=== PATIENT | female | born 1995 | race Caucasian/White ===

== ENCOUNTER 2021-06-08 02:55 | Inpatient (IN) | payer MEDICAID, OTHER ==
--- NOTE | 2021-06-08 03:21 | ED ---
Psych HPI - General Chief Complaint: Psychiatric Symptoms Stated Complaint: Mental health Time Seen by Provider: 06/08/21 02:58 Source: patient, family, RN notes reviewed, old records reviewed Mode of arrival: ambulatory - History of Present Illness Initial Comments: This is a 26-year-old female to the emergency department today for evaluation today. Patient Dese for evaluation of significant suicidal thoughts. Severe depression. No recent drugs or alcohol abuse. Patient states she needs to psychiatry due to the severity of her current symptoms. MD Complaint: suicidal ideation, feels depressed -: days(s) Associated Psychiatric Symptoms: depression, suicidal ideation, racing thoughts History of same: Yes Quality: constant Improves With: none Worsens With: none Context: not taking psychiatric medications, significant life stressor Associated Symptoms: denies other symptoms Treatments Prior to Arrival: placed on mental health hold If Self Harm: admits thoughts of self harm - Related Data Allergies Allergy/AdvReac Type Severity Reaction Status Date / Time No Known Allergies Allergy Verified 06/08/21 03:05 Review of Systems ROS Statement: Those systems with pertinent positive or pertinent negative responses have been documented in the HPI. ROS Other: All systems not noted in ROS Statement are negative. Past Medical History Past Medical History: No Reported History Additional Past Medical History / Comment(s): depression History of Any Multi-Drug Resistant Organisms: MRSA Date of last positivie culture/infection: left thigh Past Surgical History: No Surgical Hx Reported Past Psychological History: Anxiety, Depression Smoking Status: Current every day smoker Past Alcohol Use History: Occasional Past Drug Use History: None Reported General Exam Limitations: no limitations General appearance: alert, in no apparent distress Head exam: Present: atraumatic, normocephalic, normal inspection Eye exam: Present: normal appearance, PERRL, EOMI. Absent: scleral icterus, conjunctival injection, periorbital swelling ENT exam: Present: normal exam, mucous membranes moist Neck exam: Present: normal inspection. Absent: tenderness, meningismus, lymphadenopathy Respiratory exam: Present: normal lung sounds bilaterally. Absent: respiratory distress, wheezes, rales, rhonchi, stridor Cardiovascular Exam: Present: regular rate, normal rhythm, normal heart sounds. Absent: systolic murmur, diastolic murmur, rubs, gallop, clicks GI/Abdominal exam: Present: soft, normal bowel sounds. Absent: distended, tenderness, guarding, rebound, rigid Extremities exam: Present: normal inspection, full ROM, normal capillary refill. Absent: tenderness, pedal edema, joint swelling, calf tenderness Back exam: Present: normal inspection Neurological exam: Present: alert, oriented X3, CN II-XII intact Psychiatric exam: Present: normal affect, normal mood Skin exam: Present: warm, dry, intact, normal color. Absent: rash Course Vital Signs 06/08/21 02:59 Temperature 98.4 F Pulse Rate 102 H Respiratory 22 Rate Blood Pressure 128/78 O2 Sat by Pulse 96 Oximetry - Reevaluation(s) Reevaluation #1: 06/08/21 05:36 Record is reviewed 06/08/21 05:36 Clear for psychiatric evaluation Reevaluation #2: 06/08/21 06:08 Patient did attempt suicide by jumping out of a rolling vehicle Medical Decision Making - Medical Decision Making 26 female will be admitted for suicide attempt, major depression suicidal ideation - Lab Data Lab Results 06/08/21 Range/Units 03:23 Urine Opiates Screen Not Detected (NotDetected) Ur Oxycodone Screen Not Detected (NotDetected) Urine Methadone Screen Not Detected (NotDetected) Ur Propoxyphene Screen Not Detected (NotDetected) Ur Barbiturates Screen Not Detected (NotDetected) U Tricyclic Antidepress Not Detected (NotDetected) Ur Phencyclidine Scrn Not Detected (NotDetected) Ur Amphetamines Screen Not Detected (NotDetected) U Methamphetamines Scrn Not Detected (NotDetected) U Benzodiazepines Scrn Not Detected (NotDetected) Urine Cocaine Screen Not Detected (NotDetected) U Marijuana (THC) Screen Detected H (NotDetected) Disposition Clinical Impression: Depression, Suicidal ideation, Attempted suicide Disposition: TRANSFER TO PSYCH HOSP/UNIT Condition: Fair Is patient prescribed a controlled substance at d/c from ED?: No Referrals: None,Stated [Primary Care Provider] - 1-2 days
[2021-06-08 04:21] LABS: Amphetamine Screen,Urine Not Detected (NotDetected); Barbiturate Screen,Urine Not Detected (NotDetected); Benzodiazepines Screen,Urine Not Detected (NotDetected); Cocaine Screen,Urine Not Detected (NotDetected); Methadone Screen, Urine Not Detected (NotDetected); Opiate Screen,Urine Not Detected (NotDetected); Oxycodone Screen, Urine Not Detected (NotDetected); Phencyclidine Screen,Urine Not Detected (NotDetected); Tricyclic Antidepressant,Urine Not Detected (NotDetected); Urn Cannabinoid Scrn Detected (NotDetected)
[2021-06-08] MEDS ORDERED: MAGNESIUM HYDROXIDE 2,400 MG/10 ML CUP PO PRN (07:56)
[2021-06-08] MEDS ORDERED: MAG HYDROX/AL HYDROX/SIMETH 30 ML CUP PO PRN (07:56)
[2021-06-08] MEDS ORDERED: ACETAMINOPHEN TAB 325 MG TAB PO PRN (07:56)
[2021-06-08] MEDS ORDERED: HALOPERIDOL LACTATE 5 MG/ML 1 ML VIAL IM PRN (07:58)
[2021-06-08] MEDS ORDERED: LORazepam 1 MG TAB PO PRN (08:00)
[2021-06-08] MEDS ORDERED: LORazepam 2 MG/ML INJ IM PRN (08:00)
[2021-06-08] MEDS: NICOTINE 14MG/24HR PATCH TRANSDERM SCH (08:40)
[2021-06-08 10:42] LABS: Appearance,Urine Clear (Clear); Bilirubin,Urine Negative (Negative); Blood,Urine Negative (Negative); Color,Urine Yellow; Glucose,Urine (UA) Negative (Negative); Ketones,Urine Negative (Negative); Leukocyte Esterase,Urine Negative (Negative); Nitrite,Urine Negative (Negative); Protein,Urine Negative (Negative)
--- NOTE | 2021-06-08 11:17 | P.HPIM ---
History of Present Illness H&P Date: 06/08/21 Chief Complaint: Suicide attempt This is a 26-year-old female to the emergency department today for evaluation today. Patient admittedfor evaluation of significant suicidal thoughts and attempt. Patient tried to stab herself with a knife. Severe depression. No recent drugs or alcohol abuse. Patient states she needs to psychiatry due to the severity of her current symptoms. Review of Systems 14 point review of systems was assessed patient was only positive for those discussed in HPI Past Medical History Past Medical History: No Reported History Additional Past Medical History / Comment(s): depression History of Any Multi-Drug Resistant Organisms: MRSA Date of last positivie culture/infection: left thigh MDRO Source:: sore on thigh Past Surgical History: No Surgical Hx Reported Past Psychological History: Anxiety, Depression Smoking Status: Current every day smoker Past Alcohol Use History: Occasional Past Drug Use History: None Reported Medications and Allergies Home Medications Medication Instructions Recorded Confirmed Type Benztropine Mesylate [Cogentin] 2 mg PO BID 06/08/21 06/08/21 History Desvenlafaxine Succinate [Pristiq] 50 mg PO DAILY 06/08/21 06/08/21 History Lurasidone HCl [Latuda] 120 mg PO HS 06/08/21 06/08/21 History fluPHENAZine HCl 10 mg PO HS 06/08/21 06/08/21 History fluPHENAZine [Prolixin 5MG] 5 mg PO DAILY PRN 06/08/21 06/08/21 History traZODone HCL 150 mg PO HS 06/08/21 06/08/21 History Allergies Allergy/AdvReac Type Severity Reaction Status Date / Time No Known Allergies Allergy Verified 06/08/21 09:09 Physical Exam Osteopathic Statement: *. No significant issues noted on an osteopathic structural exam other than those noted in the History and Physical/Consult. Vitals: Vital Signs Temp Pulse Pulse Resp BP BP Pulse Ox 06/08/21 08:53 99.3 F 97 15 141/89 95 06/08/21 02:59 98.4 F 102 H 22 128/78 96 Intake and Output 06/07/21 06/08/21 06/08/21 22:59 06:59 14:59 Other: Weight 154.539 kg 154.539 kg General: [non toxic], [no distress], [appears at stated age] Derm: [warm], [dry] Head: [atraumatic], [normocephalic], [symmetric] Eyes: [EOMI], [no lid lag], [anicteric sclera] Mouth: [no lip lesion], [mucus membranes moist] Cardiovascular: [S1S2 reg], [no murmur], [positive posterior tibial pulse bilateral], Lungs: [CTA bilateral], [no rhonchi, no rales] , [no accessory muscle use] Abdominal: [soft], [ nontender to palpation], [no guarding], [no appreciable organomegaly] Ext: [no gross muscle atrophy], [no edema], [no contractures] Neuro: [ CN II-XI grossly intact], [no focal neuro deficits] Psych: [Alert], [oriented], [appropriate affect] Results Labs: Abnormal Lab Results - Last 24 Hours (Table) 06/08/21 Range/Units 03:23 U Marijuana (THC) Screen Detected H (NotDetected) Thrombosis Risk Factor Assmnt - Choose All That Apply Any of the Below Risk Factors Present?: No Assessment and Plan Plan: Suicidal ideation and attempt with major depressive disorder Continue psychiatric care as recommended Follow-up as needed Time with Patient: Greater than 30
--- NOTE | 2021-06-08 11:33 | P.HP ---
Psychiatric H&P - . H&P Date: 06/08/21 History & Physical: Allergies Allergy/AdvReac Type Severity Reaction Status Date / Time No Known Allergies Allergy Verified 06/08/21 09:09 Vital Signs Temp 99.3 F 06/08/21 08:53 Pulse 97 06/08/21 08:53 Resp 15 06/08/21 08:53 BP 141/89 06/08/21 08:53 Pulse Ox 95 06/08/21 08:53 Intake & Output 06/07/21 06/08/21 06/08/21 18:59 06:59 18:59 Weight 154.539 kg 154.539 kg Laboratory Last Values Urine Color Yellow 06/08/21 03:23 Urine Appearance Clear (Clear) 06/08/21 03:23 Urine pH 6.0 (5.0-8.0) 06/08/21 03:23 Ur Specific [place] 1.020 (1.001-1.035) 06/08/21 03:23 Urine Protein Negative (Negative) 06/08/21 03:23 Urine Glucose (UA) Negative (Negative) 06/08/21 03:23 Urine Ketones Negative (Negative) 06/08/21 03:23 Urine Blood Negative (Negative) 06/08/21 03:23 Urine Nitrite Negative (Negative) 06/08/21 03:23 Urine Bilirubin Negative (Negative) 06/08/21 03:23 Urine Urobilinogen 2.0 mg/dL (<2.0) 06/08/21 03:23 Ur Leukocyte Esterase Negative (Negative) 06/08/21 03:23 Urine HCG, Qual Not Detected (Not Detectd) 06/08/21 03:23 Urine Opiates Screen Not Detected (NotDetected) 06/08/21 03:23 Ur Oxycodone Screen Not Detected (NotDetected) 06/08/21 03:23 Urine Methadone Screen Not Detected (NotDetected) 06/08/21 03:23 Ur Propoxyphene Screen Not Detected (NotDetected) 06/08/21 03:23 Ur Barbiturates Screen Not Detected (NotDetected) 06/08/21 03:23 U Tricyclic Antidepress Not Detected (NotDetected) 06/08/21 03:23 Ur Phencyclidine Scrn Not Detected (NotDetected) 06/08/21 03:23 Ur Amphetamines Screen Not Detected (NotDetected) 06/08/21 03:23 U Methamphetamines Scrn Not Detected (NotDetected) 06/08/21 03:23 U Benzodiazepines Scrn Not Detected (NotDetected) 06/08/21 03:23 Urine Cocaine Screen Not Detected (NotDetected) 06/08/21 03:23 U Marijuana (THC) Screen Detected (NotDetected) H 06/08/21 03:23 Coronavirus (PCR) Not Detected (Not Detectd) 06/08/21 06:14 06/08/21 11:25 Initial evaluation: History of present illness: Jorge is a 26-year-old female with long history of mental illness and states that she carries a diagnoses of bipolar disorder Patient is of a vague and a poor historian and at times seemed to be very preoccupied Patient states that there was something in her mind that bothered her and resulted in her hospitalization She was unable to elaborate Reviewing the chart reveals that the patient had suicidal thoughts where she wanted to stab herself with a knife Patient did not give any specific detailed was states that she has been feeling depressed She admits that she has a history of being a cutter as well as other suicide attempts in the past She stated that she currently lives with her parents Patient was unable to give any specific stressors for her recent hospitalization She denies any alcohol or substance use but states that she has sometimes used alcohol and cannabis She was very vague about her current medications but states that she has taken Pristiq trazodone and let to do Patient is unable to recall the doses Reviewing the chart reveals that the patient is on Pristiq 50 mg daily Trazodone 150 mg at nighttime Prolixin 10 mg at bedtime Cogentin 2 mg twice a day latuda -120 mg every day Past history personal and social history: Patient reports several previous psychiatric hospitalizations Patient was unable to give any specific details and does not remember when she was last hospitalized As mentioned earlier patient admits to occasionally using cannabis and alcohol She states that she has finished high school and currently is living with her parents She states that 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 She denies being in any relationships at this time Patient is also dealing with chronic obesity Patient does not know there is family history of any mental illness Mental status examination reveals a young very obese female who currently appears in no acute physical distress Patient had her mattress on the floor and states that she is comfortable more on the floor Patient also appears to be very preoccupied and responses were rather delayed with long pauses Affect was flat Thought processes were somewhat vague superficial with delays Patient denies any auditory or visual hallucinations Patient's formal and operational judgment are impaired Insight into her problem is poor Problem solving ability is impaired Cognitively patient also shows some delays in responses and difficulty with concentration and attention span Diagnostic impression: Bipolar disorder mixed type Rule out personality disorder with borderline tendencies Plan: Patient is an appropriate candidate for inpatient psychiatric hospitalization 2 will continue her current medications although I had difficulty putting in the orders for Pristiq and Latuda which are not listed in the order forms We'll discuss to the nursing staff regarding adding those orders Patient's compliance with the medications is questionable and at this time we will restart the whole medications before making any changes or adjustments Patient also participated on the boateng activities individual milieu and group therapies Approximate length of stay would be 5-7 days Bentley Hauser M.D. 06/08/2021
[2021-06-08] MEDS: BENZTROPINE MESYLATE 1 MG TAB PO SCH ×2 (11:35→23:25)
[2021-06-08] MEDS: DESVENLAFAXINE SUCCINATE 50 MG TAB.ER.24H PO SCH (11:35)
[2021-06-08] MEDS ORDERED: LURASIDONE 40 MG TAB PO SCH (21:00)
[2021-06-08] MEDS: traZODone HCL 50 MG TAB PO SCH (23:26)
[2021-06-09] MEDS: NICOTINE 14MG/24HR PATCH TRANSDERM SCH ×2 (08:40→10:54)
[2021-06-09] MEDS: BENZTROPINE MESYLATE 1 MG TAB PO SCH ×3 (08:40→21:11)
[2021-06-09] MEDS: DESVENLAFAXINE SUCCINATE 50 MG TAB.ER.24H PO SCH (08:40)
[2021-06-09 11:39] LABS: Basophils # (A) 0.1 k/uL (0-0.2); Basophils % (A) 1 %; Eosinophils # (A) 0.3 k/uL (0-0.7); Eosinophils % (A) 3 %; HCT 49.2 % (34.0-46.0); HGB 16.1 gm/dL (11.4-16.0); Lymphocytes # (A) 2.1 k/uL (1.0-4.8); Lymphocytes % (A) 22 %; MCH 29.5 pg (25.0-35.0); MCHC 32.7 g/dL (31.0-37.0); MCV 90.2 fL (80.0-100.0); Mean Platelet Volume 8.8; Monocytes # (A) 0.5 k/uL (0-1.0); Monocytes % (A) 5 %; Neutrophils # (A) 6.5 k/uL (1.3-7.7); Neutrophils % (A) 68 %; Platelet Count 250 k/uL (150-450); RBC 5.45 m/uL (3.80-5.40); WBC 9.6 k/uL (3.8-10.6)
[2021-06-09 11:58] LABS: ALT 50 U/L (4-34); AST 34 U/L (14-36); African American GFR (CKD) >90 (>60 ml/min/1.73 sqM); Albumin 4.4 g/dL (3.5-5.0); Alkaline Phosphatase 80 U/L (38-126); Anion Gap 9 mmol/L; Blood Urea Nitrogen 9 mg/dL (7-17); Calcium 9.5 mg/dL (8.4-10.2); Carbon Dioxide 23 mmol/L (22-30); Chloride 104 mmol/L (98-107); Glucose 105 mg/dL (74-99); Non-African American GFR(CKD) >90 (>60 ml/min/1.73 sqM); Potassium 4.5 mmol/L (3.5-5.1); Sodium 136 mmol/L (137-145); Total Bilirubin 1.3 mg/dL (0.2-1.3); Total Protein 7.3 g/dL (6.3-8.2)
--- NOTE | 2021-06-09 12:33 | P.PN ---
Progress Note - Text Progress Note Date: 06/09/21 Interval History: Patient was seen [wandering the hallways] and was directable and agreeable to speak with physician underwriter in the office. [ The patient was fairly concrete and appeared to have a depressed affect during conversation. She spoke in a monotone voice. She was very vague and guarded about why she came into the hospital. She was denying any recent stressors except for being focused on "feeling like everyone's dying around me". She endorsed delusions mildly related to this however was not endorsing any paranoia. She claims that she trusts the staff in the unit. She had a poverty of content and appeared to have thought blocking. She had poor eye contact during conversation. She was alert and oriented 3. She had superficial insight into her mental health and need for treatment however was agreeable to take medications]. She is denying any mood swings at this time however does state that she is feeling depressed and mildly anxious. She claims that she has fair sleep. At this time patient denies any suicidal or homical ideations, intent or plan. Patient denies any auditory, visual hallucinations and denies any paranoia or delusions. Patient denies any side effects from the medications and has been compliant with meds. Mental Status Exam: General Appearance: [Patient appears to be overweight, stated age is alert, concrete, guarded/evasive] Behavior: [Patient is calmly seated without any agitated behavior.] Poor eye contact. Speech: Patient's speech is fluent and nonpressured. Monotone and concrete. Mood/Affect: Mood is "depressed", affect is congruent and constricted. Suicidality/Homicidality: Patient denies having any suicidal or homicidal ideation intent or plan. Perceptions: Patient denies any visual hallucinations [and denies any auditory hallucinations] Though content/process: [place], poverty of content. Guarded. Not endorsing any paranoia. Memory and concentration: AOX3, grossly intact for the purposes of this session Judgment and insight: Superficial Assessment schizoaffective disorder, unspecified cannabis use disorder, mild nicotine dependence Plan: -Patient continues to meet criteria for inpatient psychiatric admission for symptom stabilization and safety. Patient has signed [adult voluntary form and] [medication consent] and was placed in patient's chart. -Medications: Discontinued latuda as there is no need currently for two antipsychotics. continue with prolixin 5 mg daily + 10 mg qhs for psychosis/mood stabilization. trazodone 150 mg qhs for mood/insomnia, cogentin decreased to 1 mg bid for eps rxn and pristiq 50 mg for mood/anxiety. -When necessary Ativan and Haldol for agitation/aggression. -NRT - [nicotine patch] -SW on board for discharge planning. Encouraged the patient to participate in milieu.
[2021-06-09] MEDS: traZODone HCL 50 MG TAB PO SCH (21:11)
[2021-06-09 21:34] LABS: Chol/HDL Ratio 3.58 Ratio; LDL Cholesterol,Calculated 59.1 mg/dL (0.0-131.0)
[2021-06-10] MEDS: DESVENLAFAXINE SUCCINATE 50 MG TAB.ER.24H PO SCH (09:20)
[2021-06-10] MEDS: NICOTINE 14MG/24HR PATCH TRANSDERM SCH (09:21)
[2021-06-10] MEDS: BENZTROPINE MESYLATE 1 MG TAB PO SCH ×2 (09:21→21:08)
--- NOTE | 2021-06-10 11:30 | P.PN ---
Progress Note - Text Progress Note Date: 06/10/21 Interval History: Patient was seen lying in her bed today and was directable and agreeable to sp eak with continuity writer in the office. The patient was fairly concrete once again and had a poverty of content. She had poor eye contact during conversation and spoke in a monotone voice. She denied any overnight complaints. She did claim that she is feeling paranoid "about bad things happening" however was very nonspecific and guarded when asked more questions about this. She does state that she trusts the staff and other patients on the unit. She was noted to be responding to internal stimuli at times during interview and looked away from continuity writer and began laughing. She was asked why she was laughing however claims that "it was just a gesture". She states that she will speak to her father today as he will come to visit. She had superficial insight into her mental health and need for treatment however was agreeable to take medications. She is denying any mood swings at this time however does state that her mood and anxiety been improving since yesterday. She claims that she has fair sleep. At this time patient denies any suicidal or homical ideations, intent or plan. Patient denies any auditory, visual hallucinations and denies any paranoia or delusions. Patient denies any side effects from the medications and has been compliant with meds. Mental Status Exam: General Appearance: Patient appears to be overweight, stated age is alert, concrete, guarded/evasive Behavior: Patient is calmly seated without any agitated behavior. Poor eye contact. Responding to internal stimuli at times. Speech: Patient's speech is fluent and nonpressured. Monotone and concrete. Mood/Affect: Mood is "a bit better", affect is congruent and constricted. Suicidality/Homicidality: Patient denies having any suicidal or homicidal ideation intent or plan. Perceptions: Patient denies any visual hallucinations and denies any auditory hallucinations Though content/process: [place], poverty of content. Guarded. paranoia Memory and concentration: AOX3, grossly intact for the purposes of this session Judgment and insight: Superficial Assessment schizoaffective disorder, unspecified cannabis use disorder, mild nicotine dependence Plan: -Patient continues to meet criteria for inpatient psychiatric admission for symptom stabilization and safety. Patient has signed adult voluntary form and medication consent and was placed in patient's chart. -Medications: continue with prolixin 5 mg daily + 10 mg qhs for psychosis/mood stabilization, consider increasing this as needed. trazodone 150 mg qhs for mood/insomnia, cogentin 1 mg bid for eps rxn and pristiq 50 mg for mood/anxiety. -When necessary Ativan and Haldol for agitation/aggression. -NRT - nicotine patch -SW on board for discharge planning. Encouraged the patient to participate in milieu. patient will be going to [facility] upon discharge and likely discharge wednesday.
[2021-06-10] MEDS: traZODone HCL 50 MG TAB PO SCH (21:08)
[2021-06-11] MEDS: BENZTROPINE MESYLATE 1 MG TAB PO SCH ×2 (09:16→20:15)
[2021-06-11] MEDS: NICOTINE 14MG/24HR PATCH TRANSDERM SCH (09:16)
[2021-06-11] MEDS: DESVENLAFAXINE SUCCINATE 50 MG TAB.ER.24H PO SCH (09:16)
[2021-06-11] MEDS ORDERED: DESVENLAFAXINE SUCCINATE 50 MG TAB.ER.24H PO ONE (12:00)
--- NOTE | 2021-06-11 14:33 | PN ---
PROGRESS NOTE DATE OF SERVICE: 06/11/2021. CHIEF COMPLAINT: The patient was depressed with suicidal thinking and thoughts of wanting to stab herself. INTERVAL HISTORY: The patient continues to be quite depressed. She had a quiet day yesterday. She comes out on the unit some. She tends to keep to herself. Staff have noted that she seems to respond at different times to internal stimuli. She did not attend groups yesterday. She slept fair last night. Today she has been up. She attended one group today briefly. She was asked one question in the group; her response was "I don't know." After that she just walked out of the group and did not return. When I talked to her today, she was quite vague in her thinking. She did not respond much to any of the questions, mostly just gave some vague one- or two-word responses that did not connect to the questions at hand. She did not identify any specific concerns. She seems to tolerate her medications. MENTAL STATUS: Patient sat with some restlessness. Eye contact was poor. She tended to look forward or down. She would respond to questions, though her responses were just vague and mostly not connected to the question at hand. She otherwise did not make any statements one way or another. Her affect was flat, her mood depressed. When she first came into the office and sat, she started crying, though then the tears seem to dissipate. She seemed moderately distressed. She shows response to internal stimuli. She did not make any direct comments in regard to thoughts of harm. She was oriented to circumstances and surroundings. ASSESSMENT: I will continue the current diagnosis and treatment plan. The patient continues to be significantly caught up in thought disorder symptoms as well as mood difficulties. Her Prolixin has just been increased yesterday 10 mg twice a day. I will increase her Pristiq to 100 mg a day. She will continue trazodone 150 mg at bedtime. I briefly reviewed medication issues with the patient though kept the discussion limited, as the patient was not able to engage in the conversation. We will focus on stabilization and discharge planning. MMODL / IJN: [id number] /
[2021-06-11] MEDS: traZODone HCL 50 MG TAB PO SCH (20:16)
[2021-06-12] MEDS: NICOTINE 14MG/24HR PATCH TRANSDERM SCH (09:16)
[2021-06-12] MEDS: DESVENLAFAXINE SUCCINATE 50 MG TAB.ER.24H PO SCH (09:17)
[2021-06-12] MEDS: BENZTROPINE MESYLATE 1 MG TAB PO SCH ×2 (09:17→21:37)
--- NOTE | 2021-06-12 13:16 | PN ---
PROGRESS NOTE DATE OF SERVICE: 06/12/2021. CHIEF COMPLAINT: The patient was depressed with suicidal thinking and thoughts of wanting to stab herself. INTERVAL HISTORY: Patient has been doing fair. She seems to continue with some depression symptoms, though it is difficult, as she does not communicate much. She mostly kept to herself yesterday. She will spend a fair amount of time in her room. She did come out in the day area. She does not attend groups. She continues to show times where she responds to internal stimuli. She has been cooperative with care. The patient reports that she slept well last night. Today she has been up. Overall, things have been about the same. She says that she had a difficult living situation when she was with her parents, though she could not describe any details of that. She said that she has an okay relationship with her parents at least some of the time. She agreed to my having contact with the parents to get additional information. The patient understands that she is looking towards moving into [facility], though that would not happen until next week. She suggested that it would be a better living situation for her. She does say that she has had previous psychiatric hospitalization, though she said she did not remember any details about it. She was vague about any medication she may have been on. She had no specific complaints or concerns today. She tolerates her psychotropic medications. MENTAL STATUS: Patient sat without restlessness. She mostly sat in a slumped posture looking forward. She did not give much eye contact. She responded to questions with one-word responses. She talked in a soft monotone voice. She was not spontaneous. Her responses were mostly vague and without any clear details about specifics. Her affect was flat, her mood reserved. She seemed somewhat distressed. It is noteworthy that at a few different times during the interview she seemed to look off and have some mouth movements as if she was talking to someone not there. A few different times when she did that she also changed her facial expression and had a slight smile on her face. She voiced no thoughts of harm. She was oriented to circumstances and surroundings. ASSESSMENT: I will continue the current diagnosis and treatment plan. I will continue psychotropic medications the same. Her Prolixin has just been increased, as has her Pristiq. I will make an effort to contact her parents to get further information. We will focus on stabilization and discharge planning. MMODL / IJN: [id number] /
[2021-06-12] MEDS: traZODone HCL 50 MG TAB PO SCH (21:37)
[2021-06-13] MEDS: DESVENLAFAXINE SUCCINATE 50 MG TAB.ER.24H PO SCH (08:40)
[2021-06-13] MEDS: BENZTROPINE MESYLATE 1 MG TAB PO SCH ×2 (08:40→20:36)
[2021-06-13] MEDS: NICOTINE 14MG/24HR PATCH TRANSDERM SCH (08:41)
[2021-06-13] MEDS ORDERED: hydrOXYzine pamoate 25 MG CAP PO PRN (09:46)
--- NOTE | 2021-06-13 11:25 | PN ---
PROGRESS NOTE DATE OF SERVICE: 06/13/2021. CHIEF COMPLAINT: The patient was depressed, with suicidal thinking and thoughts of wanting to stab herself. INTERVAL HISTORY: The patient has continued about the same. She had a quiet day yesterday. She comes out on the unit. She will wander about. She almost seems to be in a fog most of the time where she will walk in a very slow manner. She does not pay much attention to things going on around her. At times she can be seen to be apparently talking to herself. She does not interact with others. She reports that she slept fairly well last night. Today she has been up and doing pretty much the same. It is noteworthy that there are times when she will appear as if she is about to cry and then other times when she will get a smile on her face. This morning when I talked to her, the first thing she said was that she was "doing terrible." When I asked her about that, she then seemed to minimize issues and just gave vague responses without any details. She tended to repeat herself after that that everything was "okay." She continues to show response to internal stimuli. She continues to have a withdrawn manner. When I tried to get specifics from her, I was unable to elicit any reliable information. Best I could tell, the patient tolerates her psychotropic medications. MENTAL STATUS: Patient moved in a very slow manner. She did not give much eye contact. Mostly when she sat she looked forward and down. She answered questions mostly with one-word responses. She talked in a soft, almost airy voice. Her affect was flat, mood depressed. She appeared to be on the verge of tears at one point in the interview. She seemed significantly distressed. She continues to respond to internal stimuli. She made no indications of thoughts of harm. She seems to be oriented to her immediate circumstances and surroundings; beyond that it is difficult to assess. ASSESSMENT: I will continue the current diagnosis and treatment plan. Will continue to make efforts to engage the patient in individual and group therapeutic activities. The patient continues to show apparent symptoms of thought disorder. I will increase her Prolixin to 15 mg twice a day. She will continue with Pristiq; the dose was just increased 2 days ago to 100 mg. I briefly reviewed medication issues with the patient though kept the discussion limited, as the patient was not inclined to engage much in the conversation. We will focus on stabilization and discharge planning. MMLEX / BENITEZN: [id number] /
[2021-06-13] MEDS: traZODone HCL 50 MG TAB PO SCH (20:36)
[2021-06-14] MEDS: BENZTROPINE MESYLATE 1 MG TAB PO SCH ×2 (08:21→21:22)
[2021-06-14] MEDS: DESVENLAFAXINE SUCCINATE 50 MG TAB.ER.24H PO SCH (08:21)
[2021-06-14] MEDS: NICOTINE 14MG/24HR PATCH TRANSDERM SCH (08:21)
--- NOTE | 2021-06-14 16:30 | PN ---
PROGRESS NOTE DATE OF SERVICE: 06/14/2021. CHIEF COMPLAINT: The patient was depressed with suicidal thinking and thoughts of wanting to stab herself. INTERVAL HISTORY: Patient has been doing fair. She had a quiet day yesterday. She was out on the unit. She tends to wander about. She walks in a very slow manner. She chose not to attend groups yesterday. She does not socialize with others. Often she does not seem to pay too much attention to things going on around her. She slept fairly well last night. Today she has been up. Overall there has not been much change. She did attend one group today, which was the first for her and seemed to be a positive step. She was only in the group for a limited amount of time. When I talked to her today, she did not voice any complaints or concerns. It was difficult to be clear how much she feels that medications have been helping her. Her Prolixin dose has been increased. She has not had difficulties with that. Also her Pristiq has been increased. She continues to remain isolated. She does not engage much in a therapeutic process, though it is hard to be clear what issues we can best address with her. She tolerates her psychotropic medications. MENTAL STATUS: Patient sat without restlessness. Eye contact was fair at best. Psychomotor activity was slowed. Speech was monotone. She answered questions with one- or two-word responses. She did not say much. Her affect was flat, mood quiet. She did not appear to be significantly distressed. She continues to show response to internal stimuli. She voiced no thoughts of harm. She is oriented to circumstances and surroundings. ASSESSMENT: I will continue the current diagnosis and treatment plan. I will continue psychotropic medications the same. The primary issues relate to her antidepressant along with her antipsychotic. Both have been titrated up. I only briefly addressed the medication issues, as the patient was not able to engage in the conversation. We will focus on stabilization and discharge planning. MMODL / IJN: [id number] /
[2021-06-14] MEDS: traZODone HCL 100 MG TAB PO SCH (21:22)
[2021-06-15 00:43] VITALS: BP 137/70; PULSE 60; RESP 15; TEMP 97.7
[2021-06-15] MEDS: NICOTINE 14MG/24HR PATCH TRANSDERM SCH (08:53)
[2021-06-15] MEDS: DESVENLAFAXINE SUCCINATE 50 MG TAB.ER.24H PO SCH (08:54)
[2021-06-15] MEDS: BENZTROPINE MESYLATE 1 MG TAB PO SCH ×2 (08:54→21:36)
--- NOTE | 2021-06-15 12:49 | PN ---
PROGRESS NOTE DATE OF SERVICE: 06/15/2021. CHIEF COMPLAINT: The patient was depressed with suicidal thinking and thoughts of wanting to stab herself. INTERVAL HISTORY: Overall the patient continues about the same. She had a quiet day yesterday. She comes out on the unit. She will wander about some. She does not interact with others and mostly keeps to herself. She will spend a fair amount of time in her room. She did attend one group yesterday for a limited amount of time. She said she slept fairly well last night. Today she has spent most of the morning in her room. She voiced no specific complaints or concerns. She was vague about whether she is experiencing any voices. She tolerates her psychotropic medications. MENTAL STATUS EXAM: Patient sat without restlessness. She did not give much eye contact at all. She only responded with one-word answers and did not give much information. Her affect was blunted, her mood reserved. She seemed somewhat distressed. She continues to show response to internal stimuli where she will apparently talk to herself of show change in facial expression for no apparent response to something externally. She made no indication of thoughts of harm. She was oriented to circumstances and surroundings. ASSESSMENT: I will continue the current diagnosis and treatment plan. I will continue psychotropic medications the same. Her Prolixin, which is likely her primary medication, has been increased to 15 mg twice a day. Pristiq has also been increased to 100 mg a day. I briefly reviewed medication issues with the patient, though she was not able to engage much in that conversation. We will focus on stabilization and discharge planning. KARLI / BENITEZN: [id number] /
[2021-06-15] MEDS: traZODone HCL 100 MG TAB PO SCH (21:36)
[2021-06-16] MEDS: BENZTROPINE MESYLATE 1 MG TAB PO SCH (09:18)
[2021-06-16] MEDS: DESVENLAFAXINE SUCCINATE 50 MG TAB.ER.24H PO SCH (09:18)
[2021-06-16] MEDS: NICOTINE 14MG/24HR PATCH TRANSDERM SCH (09:18)
--- NOTE | 2021-06-16 11:38 | P.DS ---
Providers Date of admission: 06/08/21 07:52 Expected date of discharge: 06/16/21 Attending physician: Bebeto Perry MD Consults: 06/08/21 07:56 Consult Physician Routine Consulting Provider: Charles Mello Consult Reason/Comments: Admission H & P Do you want consulting provider notified?: Yes Primary care physician: Stated None - Discharge Diagnosis(es) (1) Schizoaffective disorder Current Visit: Yes Status: Acute Priority: High (2) Cannabis use disorder, mild, abuse Current Visit: Yes Status: Acute Priority: Medium (3) Nicotine dependence Current Visit: Yes Status: Acute Priority: Low Hospital Course: Admission HPI: Admission note was completed by Dr. Hauser "Jorge is a 26-year-old female with long history of mental illness and states that she carries a diagnoses of bipolar disorder. Patient is of a vague and a poor historian and at times seemed to be very preoccupied. Patient states that there was something in her mind that bothered her and resulted in her hospitalization. She was unable to elaborate. Reviewing the chart reveals that the patient had suicidal thoughts where she wanted to stab herself with a knife. Patient did not give any specific detailed was states that she has been feeling depressed. She admits that she has a history of being a cutter as well as other suicide attempts in the past. She stated that she currently lives with her parents. Patient was unable to give any specific stressors for her recent hospitalization. She denies any alcohol or substance use but states that she has sometimes used alcohol and cannabis. She was very vague about her current medications but states that she has taken Pristiq trazodone and let to do. Patient is unable to recall the doses. Reviewing the chart reveals that the patient is on Pristiq 50 mg daily. Trazodone 150 mg at nighttime. Prolixin 10 mg at bedtime. Cogentin 2 mg twice a day. latuda -120 mg every day." Hospital course: Upon admission to the unit patient was admitted involuntarily on a petition and certificate and a second certificate was completed and faxed with the courts. Patient ended up signing a deferral with the real estate attorney and agreeing to treatment. Patient got along well with other patients on the unit and followed unit protocol however mainly kept to herself during the course of her hospitalization. Patient was compliant with the medications and denied any side effects throughout hospital course. Patient was started on Prolixin by mouth and increased to a dose of 15 mg twice a day for psychosis/mood stabilization. Patient was offered Prolixin D long acting injection to ensure compliance however she refused it at this time. Patient was also restarted back on Cogentin 1 mg twice a day for EPS prophylaxis. pristiq increased to 100 mg daily for anxiety/mood, trazodone 100 mg qhs for insomnia/mood. Patient spoke of her stressors and engaged in therapy both group and individual. Patient was also seen by medical team for history and physical exam. Throughout the course of the hospitalization patient gradually improved with regards to mood, anxiety, sleep and returned back to their baseline level of functioning. The patient has chronically limited insight and judgment. On the day of discharge patient denied any suicidal or homicidal ideations intent or plan denied any auditory or visual hallucinations. Patient endorsed wanting to live for her health and her future. The patient denied any access to guns or weapons. Patient denied any paranoia and did not endorse any delusions. Patient does have a significant history of substance abuse and was counseled on abstaining from all substances including alcohol and marijuana. Patient was also counseled on the medications and need for regular compliance and was encouraged to follow-up with their outpatient appointment for mental health and also for primary care. 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 Mental status exam: General Appearance: Patient appears to be obese, stated age is alert, direc table, and cooperative. Patient is in no acute distress and has improved hygiene and grooming Behavior: Patient is calmly seated without any agitated behavior. Constricted Speech: Patient's speech is fluent and nonpressured. Mood/Affect: Patient reports their mood is "better", affect is congruent and constricted Suicidality/Homicidality: Patient denies having any suicidal or homicidal ideation intent or plan. Perceptions: Patient denies any auditory or visual hallucinations. Though content/process: There is no evidence of any delusional thought content and thought process is linear and goal-directed. [place] Memory and concentration: AOX3, grossly intact for the purposes of this session. Can spell "WORLD" backwards correctly. Judgment and insight: chronically limited, however has improved with guarded prognosis Impression: Schizoaffective disorder, unspecified Cannabis use disorder, mild Nicotine dependence Plan: -Continue with discharge today as patient has improved and stabilized psychiatrically and is not currently an imminent threat to herself and/or others. Patient will remain at chronically elevated risk for harm to self and/or others due to her chronic mental health condition and limited insight in judgment. -Continue medications: Prolixin by mouth 15 mg twice a day for psychosis/mood stabilization. Patient refused Prolixin D. Trazodone 100 mg daily at bedtime for mood/insomnia, Cogentin 1 mg twice a day for EPS prophylaxis, Pristiq 100 mg daily for mood/anxiety -Patient was counseled on the need for medication compliance and appropriate follow-up at mental health and also primary care for medical issues. Patient verbalized understanding and agreed. -Social work to work with [facility] for patient's discharged today to [facility]. Social work also to arrange for patients follow up appointments with [facility] for psychiatric care along with follow up with primary care provider. Patient will also be closely monitored and followed up with by next step program through [facility]. -Patient counseled on abstaining from recreational drugs and marijuana and alcohol. Was informed/educated on the adverse effects on their physical and mental health. Patient verbally agreed and understood. -Patient was instructed to return to the hospital or seek immediate medical care if their psychiatric or medical symptoms do worsen or reoccur. Allergies Allergy/AdvReac Type Severity Reaction Status Date / Time No Known Allergies Allergy Verified 06/08/21 09:09 Laboratory Results WBC 9.6 k/uL (3.8-10.6) 06/09/21 11:19 RBC 5.45 m/uL (3.80-5.40) H 06/09/21 11:19 Hgb 16.1 gm/dL (11.4-16.0) H 06/09/21 11:19 Hct 49.2 % (34.0-46.0) H 06/09/21 11:19 MCV 90.2 fL (80.0-100.0) 06/09/21 11:19 MCH 29.5 pg (25.0-35.0) 06/09/21 11:19 MCHC 32.7 g/dL (31.0-37.0) 06/09/21 11:19 RDW 14.0 % (11.5-15.5) 06/09/21 11:19 Plt Count 250 k/uL (150-450) 06/09/21 11:19 MPV 8.8 06/09/21 11:19 Neutrophils % 68 % 06/09/21 11:19 Lymphocytes % 22 % 06/09/21 11:19 Monocytes % 5 % 06/09/21 11:19 Eosinophils % 3 % 06/09/21 11:19 Basophils % 1 % 06/09/21 11:19 Neutrophils # 6.5 k/uL (1.3-7.7) 06/09/21 11:19 Lymphocytes # 2.1 k/uL (1.0-4.8) 06/09/21 11:19 Monocytes # 0.5 k/uL (0-1.0) 06/09/21 11:19 Eosinophils # 0.3 k/uL (0-0.7) 06/09/21 11:19 Basophils # 0.1 k/uL (0-0.2) 06/09/21 11:19 Sodium 136 mmol/L (137-145) L 06/09/21 11:19 Potassium 4.5 mmol/L (3.5-5.1) 06/09/21 11:19 Chloride 104 mmol/L (98-107) 06/09/21 11:19 Carbon Dioxide 23 mmol/L (22-30) 06/09/21 11:19 Anion Gap 9 mmol/L 06/09/21 11:19 BUN 9 mg/dL (7-17) 06/09/21 11:19 Creatinine 0.73 mg/dL (0.52-1.04) 06/09/21 11:19 Est GFR (CKD-EPI)AfAm >90 (>60 ml/min/1.73 sqM) 06/09/21 11:19 Est GFR (CKD-EPI)NonAf >90 (>60 ml/min/1.73 sqM) 06/09/21 11:19 Glucose 105 mg/dL (74-99) H 06/09/21 11:[address] Glu mg/dL 103 06/09/21 11:19 Hemoglobin A1c 5.2 % (4.0-6.0) 06/09/21 11:19 Calcium 9.5 mg/dL (8.4-10.2) 06/09/21 11:19 Total Bilirubin 1.3 mg/dL (0.2-1.3) 06/09/21 11:19 AST 34 U/L (14-36) 06/09/21 11:19 ALT 50 U/L (4-34) H 06/09/21 11:19 Alkaline Phosphatase 80 U/L (38-126) 06/09/21 11:19 Total Protein 7.3 g/dL (6.3-8.2) 06/09/21 11:19 Albumin 4.4 g/dL (3.5-5.0) 06/09/21 11:19 Triglycerides 173.00 mg/dL (0.00-149.00) H 06/09/21 11:19 Cholesterol 130.00 mg/dL (0.00-200.00) 06/09/21 11:19 LDL Cholesterol, Calc 59.1 mg/dL (0.0-131.0) 06/09/21 11:19 VLDL Cholesterol, Calc 34.60 mg/dL (5.00-40.00) 06/09/21 11:19 HDL Cholesterol 36.30 mg/dL (40.00-60.00) L 06/09/21 11:19 Cholesterol/HDL Ratio 3.58 Ratio 06/09/21 11:19 TSH 1.540 mIU/L (0.465-4.680) 06/09/21 11:19 Urine Color Yellow 06/08/21 03:23 Urine Appearance Clear (Clear) 06/08/21 03:23 Urine pH 6.0 (5.0-8.0) 06/08/21 03:23 Ur Specific [place] 1.020 (1.001-1.035) 06/08/21 03:23 Urine Protein Negative (Negative) 06/08/21 03:23 Urine Glucose (UA) Negative (Negative) 06/08/21 03:23 Urine Ketones Negative (Negative) 06/08/21 03:23 Urine Blood Negative (Negative) 06/08/21 03:23 Urine Nitrite Negative (Negative) 06/08/21 03:23 Urine Bilirubin Negative (Negative) 06/08/21 03:23 Urine Urobilinogen 2.0 mg/dL (<2.0) 06/08/21 03:23 Ur Leukocyte Esterase Negative (Negative) 06/08/21 03:23 Urine HCG, Qual Not Detected (Not Detectd) 06/08/21 03:23 Urine Opiates Screen Not Detected (NotDetected) 06/08/21 03:23 Ur Oxycodone Screen Not Detected (NotDetected) 06/08/21 03:23 Urine Methadone Screen Not Detected (NotDetected) 06/08/21 03:23 Ur Propoxyphene Screen Not Detected (NotDetected) 06/08/21 03:23 Ur Barbiturates Screen Not Detected (NotDetected) 06/08/21 03:23 U Tricyclic Antidepress Not Detected (NotDetected) 06/08/21 03:23 Ur Phencyclidine Scrn Not Detected (NotDetected) 06/08/21 03:23 Ur Amphetamines Screen Not Detected (NotDetected) 06/08/21 03:23 U Methamphetamines Scrn Not Detected (NotDetected) 06/08/21 03:23 U Benzodiazepines Scrn Not Detected (NotDetected) 06/08/21 03:23 Urine Cocaine Screen Not Detected (NotDetected) 06/08/21 03:23 U Marijuana (THC) Screen Detected (NotDetected) H 06/08/21 03:23 Coronavirus (PCR) Not Detected (Not Detectd) 06/08/21 06:14 Vital Signs Temp 97.7 F 06/15/21 00:42 Pulse 60 06/15/21 00:42 Resp 15 06/15/21 00:42 BP 137/70 06/15/21 00:42 Pulse Ox 97 06/15/21 00:42 Intake & Output 06/15/21 06/16/21 06/16/21 18:59 06:59 18:59 Weight 150 kg Patient Condition at Discharge: Stable Plan - Discharge Summary New Discharge Prescriptions: New traZODone HCL [Desyrel] 100 mg PO HS 30 Days tab Benztropine Mesylate [Cogentin] 1 mg PO BID 30 Days tab Nicotine 14Mg/24Hr Patch [Habitrol] 1 patch TRANSDERM DAILY 14 Days patch Desvenlafaxine Succinate [Pristiq ER] 100 mg PO DAILY 30 Days tablet fluPHENAZine [Prolixin] 15 mg PO BID 30 Days tab Discontinued Lurasidone HCl [Latuda] 120 mg PO HS fluPHENAZine HCl 10 mg PO HS fluPHENAZine [Prolixin 5MG] 5 mg PO DAILY PRN PRN Reason: HALLUCINATIONS Desvenlafaxine Succinate [Pristiq] 50 mg PO DAILY Benztropine Mesylate [Cogentin] 2 mg PO BID traZODone HCL 150 mg PO HS Discharge Medication List Benztropine Mesylate [Cogentin] 1 mg PO BID 30 Days tab 06/16/21 [Rx] Desvenlafaxine Succinate [Pristiq ER] 100 mg PO DAILY 30 Days tablet 06/16/21 [Rx] Nicotine 14Mg/24Hr Patch [Habitrol] 1 patch TRANSDERM DAILY 14 Days patch 06/16/21 [Rx] fluPHENAZine [Prolixin] 15 mg PO BID 30 Days tab 06/16/21 [Rx] traZODone HCL [Desyrel] 100 mg PO HS 30 Days tab 06/16/21 [Rx] Follow up Appointment(s)/Referral(s): None,Stated [Primary Care Provider] - 1-2 days Activity/Diet/Wound Care/Special Instructions: Activity and diet as tolerated. Avoid the use of street drugs and alcohol. Take all medications as prescribed. When you are in need of refills on your medications please contact your medical provider and/or outpatient psychiatrist to have this done. Please go to scheduled outpatient appointment for aftercare treatment. If symptoms return or become worse, call the crisis line at and/or go to the nearest emergency room for evaluation Discharge Disposition: OTHER INSTITUTION NOT DEFINED
== END 2021-06-16 14:25 | disposition home or self-care (01) | DRG 885 ==
LOC: EC 02:55 → 3MHU 07:52
PROVIDERS: ADMIT Psychiatry & Neurology Psychiatry; ATTEND Psychiatry & Neurology Psychiatry
DX: F25.9 Schizoaffective disorder, unspecified (principal); R45.851 Suicidal ideations; E66.9 Obesity, unspecified; F12.10 Cannabis abuse, uncomplicated; F17.200 Nicotine dependence, unspecified, uncomplicated; F31.60 Bipolar disorder, current episode mixed, unspecified; F41.9 Anxiety disorder, unspecified; G47.00 Insomnia, unspecified; Z79.899 Other long term (current) drug therapy; Z91.51 Personal history of suicidal behavior; Z20.822 Contact with and (suspected) exposure to COVID-19
CPT/HCPCS: 80053; 80061; 80306; 81003; 81025; 82075; 83036; 84443; 85025; 87635; 99285

== ENCOUNTER 2021-06-20 16:39 | Emergency (ER) | payer OTHER ==
--- NOTE | 2021-06-20 17:24 | ED ---
General Adult HPI - General Chief complaint: Psychiatric Symptoms Stated complaint: Mental health eval Time Seen by Provider: 06/20/21 17:05 Source: patient, RN notes reviewed, old records reviewed Mode of arrival: ambulatory Limitations: no limitations - History of Present Illness Initial comments: Patient is a 26 stroke female with past medical history remarkable for depression presents emergency department for suicidal thoughts. Patient is brought in by workup in the house, this is with patient is staying and she was found walking nude outside. She states that she feels as muscular self. She states she does have a plan, and was planning on using her hands to choke herself, and attempted to do so but did not squeeze hard she said. She curr ently has no neck pain and no difficulty in breathing. She did not pass out or have any injuries. Denies any chest pain, shortness breath. Denies any abdominal pain, nausea, vomiting. Denies any drug use. Denies homicidal ideations, attempts,plans. Denies visual or auditory hallucinations. She states that her suicidal ideations and depression stems from increased stressors in her life. She presents for psychiatric evaluation.I evaluated the patient when she was placed in a room. - Related Data Previous Rx's Medication Instructions Recorded Benztropine Mesylate [Cogentin] 1 mg PO BID 30 Days tab 06/16/21 Desvenlafaxine Succinate [Pristiq 100 mg PO DAILY 30 Days tablet 06/16/21 ER] Nicotine 14Mg/24Hr Patch [Habitrol] 1 patch TRANSDERM DAILY 14 Days 06/16/21 patch fluPHENAZine [Prolixin] 15 mg PO BID 30 Days tab 06/16/21 traZODone HCL [Desyrel] 100 mg PO HS 30 Days tab 06/16/21 Allergies Allergy/AdvReac Type Severity Reaction Status Date / Time No Known Allergies Allergy Verified 06/20/21 17:01 Review of Systems ROS Statement: Those systems with pertinent positive or pertinent negative responses have been documented in the HPI. Review of Systems: CONST: Denies fever EYES: Denies blurry vision ENT: Denies nasal congestion C/V: Denies Chest pain RESP: Denies shortness of breath GI: Denies abdominal pain : Denies dysuria SKIN: Denies rash. MSK: Denies joint pain. NEURO: Denies headache PSYCH: Denies homicidal ideations/plans/attempts. Denies visual or auditory hallucinations. She endorses suicidal ideations and attempt by choking herself with her own hand. ROS Other: All systems not noted in ROS Statement are negative. Past Medical History Past Medical History: No Reported History Additional Past Medical History / Comment(s): depression History of Any Multi-Drug Resistant Organisms: MRSA Date of last positivie culture/infection: left thigh MDRO Source:: sore on thigh Past Surgical History: No Surgical Hx Reported Past Psychological History: Anxiety, Depression Smoking Status: Current every day smoker Past Alcohol Use History: None Reported Past Drug Use History: None Reported General Exam - General Exam Comments Initial Comments: General: Appears in no acute distress. HEAD: Normal with no signs of head trauma. EYES: PERRLA, EOMI, conjunctiva normal, no discharge. ENT: Hearing grossly intact, normal oropharynx. No significant neck trauma. No bruising, ziegler. No carotid bruits auscultated. No stridor auscultated. Resting comfortably. No injuries. RESPIRATORY: Clear breath sounds bilaterally. No wheezes, rales, or rhonchi. C/V: Regular rate and rhythm. S1 and S2 auscultated, no edema, peripheral pu lses 2+ and intact throughout ABD: Abd is soft, nontender, nondistended EXT: Normal range of motion, no obvious deformity SKIN: No rashes or lesions observed on exposed skin. NEURO: Alert and oriented 4. No focal deficits. Limitations: no limitations Course Vital Signs 06/20/21 06/20/21 16:58 18:16 Temperature 98 F 99.0 F Pulse Rate 87 90 Respiratory 16 18 Rate Blood Pressure 94/78 137/80 O2 Sat by Pulse 97 98 Oximetry Medical Decision Making - Medical Decision Making Based on the patient's presentation and physical exam, I believe that she requires psychiatric evaluation. She states she may have attempted to "choke myself with my own hand", but has no obvious injuries. Denies passing out or experiencing injuries from the episode. Has no bruising, or neck trauma at this time. I do not believe that any further workup of this is required at this time. We will obtain a breathalyzer alcohol level as well as a UDS. Alcohol level is 0. UDS is negative. Patient is medically cleared for evaluation by psych. Disposition is pending psychiatric evaluation.Psychiatry evaluated the patient. They determined that she does not meet criteria for inpatient admission at this time. She just was discharged from inpatient psychiatry. I was in agreement this plan. Patient will be discharged home in stable condition back to [facility]. - Lab Data Lab Results 06/20/21 06/20/21 Range/Units 17:52 18:16 Urine Opiates Screen Not Detected (NotDetected) Ur Oxycodone Screen Not Detected (NotDetected) Urine Methadone Screen Not Detected (NotDetected) Ur Propoxyphene Screen Not Detected (NotDetected) Ur Barbiturates Screen Not Detected (NotDetected) U Tricyclic Antidepress Not Detected (NotDetected) Ur Phencyclidine Scrn Not Detected (NotDetected) Ur Amphetamines Screen Not Detected (NotDetected) U Methamphetamines Scrn Not Detected (NotDetected) U Benzodiazepines Scrn Not Detected (NotDetected) Urine Cocaine Screen Not Detected (NotDetected) U Marijuana (THC) Screen Not Detected (NotDetected) Coronavirus (PCR) Not Detected (Not Detectd) Disposition Clinical Impression: Encounter for psychiatric assessment, Suicidal ideation Disposition: HOME SELF-CARE Condition: Good Is patient prescribed a controlled substance at d/c from ED?: No Referrals: None,Stated [Primary Care Provider] - 1-2 days
[2021-06-20 18:08] LABS: Amphetamine Screen,Urine Not Detected (NotDetected); Barbiturate Screen,Urine Not Detected (NotDetected); Benzodiazepines Screen,Urine Not Detected (NotDetected); Cocaine Screen,Urine Not Detected (NotDetected); Methadone Screen, Urine Not Detected (NotDetected); Opiate Screen,Urine Not Detected (NotDetected); Oxycodone Screen, Urine Not Detected (NotDetected); Phencyclidine Screen,Urine Not Detected (NotDetected); Tricyclic Antidepressant,Urine Not Detected (NotDetected); Urn Cannabinoid Scrn Not Detected (NotDetected)
[2021-06-20 18:17] VITALS: BP 137/80; PULSE 90; RESP 18; TEMP 99
== END 2021-06-20 19:37 | disposition home or self-care (01) ==
LOC: EC 16:39
DX: Z13.30 Encounter for screening examination for mental health and behavioral disorders, unspecified (principal); R45.851 Suicidal ideations; F32.A Depression, unspecified; F41.9 Anxiety disorder, unspecified; F17.200 Nicotine dependence, unspecified, uncomplicated
CPT/HCPCS: 80306; 82075; 87635; 99284

== ENCOUNTER → 2021-07-03 | Outpatient (CLI) | payer OTHER | END | disposition home or self-care (01) | LOC: LABWHC1 07:36 | PROVIDERS: ATTEND Psychiatry & Neurology Psychiatry | DX: F25.0 Schizoaffective disorder, bipolar type (principal); Z79.899 Other long term (current) drug therapy | CPT/HCPCS: 36415 ==

== ENCOUNTER 2023-01-26 17:43 | Emergency (ER) | payer OTHER ==
[2023-01-26 18:46] LABS: Amphetamine Screen,Urine Not Detected (NotDetected); Barbiturate Screen,Urine Not Detected (NotDetected); Benzodiazepines Screen,Urine Not Detected (NotDetected); Cocaine Screen,Urine Not Detected (NotDetected); Methadone Screen, Urine Not Detected (NotDetected); Opiate Screen,Urine Not Detected (NotDetected); Oxycodone Screen, Urine Not Detected (NotDetected); Phencyclidine Screen,Urine Not Detected (NotDetected); Tricyclic Antidepressant,Urine Detected (NotDetected); Urn Cannabinoid Scrn Not Detected (NotDetected)
--- NOTE | 2023-01-26 19:19 | ED ---
General Adult HPI - General Source: patient, family Mode of arrival: ambulatory <Yonny Echevarria - Last Filed: 01/26/23 19:48> <David Anderson - Last Filed: 01/26/23 21:34> <Artemio Santos - Last Filed: 01/27/23 14:33> - General Chief complaint: Psychiatric Symptoms Stated complaint: Mental Health Eval Time Seen by Provider: 01/26/23 18:12 - History of Present Illness Initial comments: Dictation was produced using [employer] dictation software. please excuse any grammatical, word or spelling errors. Chief Complaint: 28-year-old female with parents for psychiatric evaluation History of Present Illness: Patient 28-year-old female she has history of psychiatric illness. She was admitted mental health auditory come to the ER to be evaluated. Patient has history of psychiatric illness. She's been displayin g bizarre psychotic behavior. She is hearing voices and states that she can hear the animals talking to her. The ROS documented in this emergency department record has been reviewed and confirmed by me. Those systems with pertinent positive or negative responses have been documented in the HPI. All other systems are other negative and/or noncontributory. (Yonny Echevarria) - Related Data Home Medications Medication Instructions Recorded Confirmed Fenofibrate [Lofibra] 54 mg PO DAILY 01/26/23 01/26/23 [place] Carbonate 600 mg PO HS 01/26/23 01/26/23 Propranolol LA [Inderal LA] 80 mg PO DAILY 01/26/23 01/26/23 cloZAPine [Clozaril] 200 mg PO HS 01/26/23 01/26/23 fluvoxaMINE [Luvox] 50 mg PO BID 01/26/23 01/26/23 metFORMIN HCL [Glucophage] 500 mg PO DAILY 01/26/23 01/26/23 Allergies Allergy/AdvReac Type Severity Reaction Status Date / Time No Known Allergies Allergy Verified 01/26/23 19:54 Review of Systems ROS Other: All systems not noted in ROS Statement are negative. <Yonny Echevarria - Last Filed: 01/26/23 19:48> ROS Other: All systems not noted in ROS Statement are negative. <David Anderson - Last Filed: 01/26/23 21:34> ROS Other: All systems not noted in ROS Statement are negative. <Artemio Santos - Last Filed: 01/27/23 14:33> ROS Statement: Those systems with pertinent positive or pertinent negative responses have been documented in the HPI. Past Medical History Past Medical History: Hypertension Additional Past Medical History / Comment(s): depression History of Any Multi-Drug Resistant Organisms: MRSA Date of last positivie culture/infection: left thigh MDRO Source:: sore on thigh Past Surgical History: No Surgical Hx Reported Past Psychological History: Anxiety, Depression, Schizoaffective Disorder Smoking Status: Current every day smoker Past Alcohol Use History: None Reported Past Drug Use History: None Reported <Yonny Echevarria - Last Filed: 01/26/23 19:48> General Exam <Yonny Echevarria - Last Filed: 01/26/23 19:48> - General Exam Comments Initial Comments: PHYSICAL EXAM: General Impression: Alert and oriented x3, not in acute distress HEENT: Normocephalic atraumatic, extra-ocular movements intact, pupils equal and reactive to light bilaterally, mucous membranes moist. Cardiovascular: Heart regular rate and rhythm Chest: Able to complete full sentences, no retractions, no tachypnea Abdomen: abdomen soft, non-tender, non-distended, no organomegaly Musculoskeletal: Pulses present and equal in all extremities, no peripheral edema Motor: no focal deficits noted Neurological: CN II-XII grossly intact, no focal motor or sensory deficits noted Skin: Intact with no visualized rashes Psych: Flat affect (Yonny Echevarria) Course Vital Signs 01/26/23 01/27/23 01/27/23 17:49 06:00 07:58 Temperature 98.0 F 97.8 F Pulse Rate 77 78 Respiratory 16 18 18 Rate Blood Pressure 136/91 116/78 O2 Sat by Pulse 96 98 Oximetry 01/27/23 13:00 Temperature Pulse Rate Respiratory 17 Rate Blood Pressure O2 Sat by Pulse Oximetry Medical Decision Making <Yonny Echevarria - Last Filed: 01/26/23 19:48> <David Anderson - Last Filed: 01/26/23 21:34> - Lab Data Result diagrams: 01/26/23 23:51 01/26/23 23:51 <Artemio Santos - Last Filed: 01/27/23 14:33> - Medical Decision Making Was pt. sent in by a medical professional or institution (, PERI, AUTISM MOTOR SPECIALIST, urgent care, hospital, or skilled nursing...) When possible be specific @ -Sent in from [facility] Did you speak to anyone other than the patient for history (EMS, parent, family, police, friend...)? What history was obtained from this source @ -No Did you review nursing and triage notes (agree or disagree)? Why? @ -I reviewed and agree with nursing and triage notes Were old charts reviewed (outside hosp., previous admission, EMS record, old EKG, old radiological studies, urgent care reports/EKG's, skilled nursing records)? Report findings @ -No old charts were reviewed Differential Diagnosis (chest pain, altered mental status, abdominal pain women, abdominal pain men, vaginal bleeding, musculoskeletal, weakness, fever, dyspnea, syncope, headache, dizziness, GI bleed, back pain, seizure, CVA, palpatations, mental health)? @ -Differential Mental Health: Depression, anxiety, bipolar, psychosis, schizophrenia, borderline personality, situational depression, adjustment disorder, behavioral disorder, brain tumor, malingering, substance abuse, encephalopathy, medication reaction, dementia, hypothyroidism, degenerative neurologic disorder, lupus.... This is not meant to be all-inclusive list EKG interpreted by me (3pts min.). @ -None done X-rays interpreted by me (1pt min.). @ -None done CT interpreted by me (1pt min.). @ -None done U/S interpreted by me (1pt. min.). @ -None done What testing was considered but not performed or refused? (CT, X-rays, U/S, labs)? Why? @ -None What meds were considered but not given or refused? Why? @ -None Did you discuss the management of the patient with other professionals (professionals i.e. PERI Levy, AUTISM MOTOR SPECIALIST, lab, RT, psych nurse, social work msw, napper tender, teacher, surface to air weapons officer, human services case manager)? Give summary @ -No Was smoking cessation discussed for >3mins.? @ -No Was critical care preformed (if so, how long)? @ -No Were there social determinants of health that impacted care today? How? (Homelessness, low income, unemployed, alcoholism, drug addiction, transportation, low edu. Level, literacy, decrease access to med. care, fpc, rehab)? @ -No Was there de-escalation of care discussed even if they declined (Discuss DNR or withdrawal of care, Hospice)? DNR status @ -No What co-morbidities impacted this encounter? (DM, HTN, Smoking, COPD, CAD, Cancer, CVA, ARF, Chemo, Hep., AIDS, mental health diagnosis, sleep apnea, morbid obesity)? @ -None Was patient admitted / discharged? Hospital course, mention meds given and route, prescriptions, significant lab abnormalities, going to OR and other pertinent info. @ -20-year-old female presents emergency department for psychiatric evaluation. She was instructed to come to the ER per community mental health specialist. Vital signs stable. Patient has features of psychosis. Patient pending evaluation by emergency psych services. Patient is sent out to oncoming physician for follow-up of EPS recommendations. (Yonny Echevarria) She had evaluated by EPS and was felt to require inpatient psychiatric evaluation and treatment at this time. I completed a clinical search on this patient. She is acutely psychotic or responding to internal stimuli. She will be admitted to this institution. (David Anderson) Patient was pending psychiatric evaluation. After evaluation, patient will be admitted inpatient psychiatry to [facility]. Accepting physician is Dr. Bonilla. (Artemio Santos) - Lab Data Lab Results 01/26/23 01/26/23 01/26/23 Range/Units 18:24 23:36 23:51 WBC 9.8 (3.8-10.6) k/uL RBC 5.35 (3.80-5.40) m/uL Hgb 15.4 (11.4-16.0) gm/dL Hct 45.8 (34.0-46.0) % MCV 85.6 (80.0-100.0) fL MCH 28.8 (25.0-35.0) pg MCHC 33.6 (31.0-37.0) g/dL RDW 13.6 (11.5-15.5) % Plt Count 251 (150-450) k/uL MPV 8.6 Neutrophils % 65 % Lymphocytes % 28 % Monocytes % 5 % Eosinophils % 0 % Basophils % 0 % Neutrophils # 6.4 (1.3-7.7) k/uL Lymphocytes # 2.8 (1.0-4.8) k/uL Monocytes # 0.5 (0-1.0) k/uL Eosinophils # 0.0 (0-0.7) k/uL Basophils # 0.0 (0-0.2) k/uL Sodium (137-145) mmol/L Potassium (3.5-5.1) mmol/L Chloride (98-107) mmol/L Carbon Dioxide (22-30) mmol/L Anion Gap mmol/L BUN (7-17) mg/dL Creatinine (0.52-1.04) mg/dL Est GFR (CKD-EPI)AfAm (>60 ml/min/1.73 sqM) Est GFR (CKD-EPI)NonAf (>60 ml/min/1.73 sqM) Glucose (74-99) mg/dL Calcium (8.4-10.2) mg/dL Total Bilirubin (0.2-1.3) mg/dL AST (14-36) U/L ALT (4-34) U/L Alkaline Phosphatase (38-126) U/L Total Protein (6.3-8.2) g/dL Albumin (3.5-5.0) g/dL Urine Color Urine Appearance (Clear) Urine pH (5.0-8.0) Ur Specific Ma[place] (1.001-1.035) Urine Protein (Negative) Urine Glucose (UA) (Negative) Urine Ketones (Negative) Urine Blood (Negative) Urine Nitrite (Negative) Urine Bilirubin (Negative) Urine Urobilinogen (<2.0) mg/dL Ur Leukocyte Esterase (Negative) Urine RBC (0-5) /hpf Urine WBC (0-5) /hpf Ur Squamous Epith Cells (0-4) /hpf Amorphous Sediment (None) /hpf Urine Mucus (None) /hpf Urine HCG, Qual (Not Detectd) Urine Opiates Screen Not Detected (NotDetected) Ur Oxycodone Screen Not Detected (NotDetected) Urine Methadone Screen Not Detected (NotDetected) Ur Propoxyphene Screen Not Detected (NotDetected) Ur Barbiturates Screen Not Detected (NotDetected) U Tricyclic Antidepress Detected H (NotDetected) Ur Phencyclidine Scrn Not Detected (NotDetected) Ur Amphetamines Screen Not Detected (NotDetected) U Methamphetamines Scrn Not Detected (NotDetected) U Benzodiazepines Scrn Not Detected (NotDetected) Urine Cocaine Screen Not Detected (NotDetected) U Marijuana (THC) Screen Not Detected (NotDetected) Coronavirus (PCR) Not Detected (Not Detectd) 01/26/23 01/26/23 01/27/23 Range/Units 23:51 23:51 12:50 WBC (3.8-10.6) k/uL RBC (3.80-5.40) m/uL Hgb (11.4-16.0) gm/dL Hct (34.0-46.0) % MCV (80.0-100.0) fL MCH (25.0-35.0) pg MCHC (31.0-37.0) g/dL RDW (11.5-15.5) % Plt Count (150-450) k/uL MPV Neutrophils % % Lymphocytes % % Monocytes % % Eosinophils % % Basophils % % Neutrophils # (1.3-7.7) k/uL Lymphocytes # (1.0-4.8) k/uL Monocytes # (0-1.0) k/uL Eosinophils # (0-0.7) k/uL Basophils # (0-0.2) k/uL Sodium 138 (137-145) mmol/L Potassium 3.9 (3.5-5.1) mmol/L Chloride 104 (98-107) mmol/L Carbon Dioxide 20 L (22-30) mmol/L Anion Gap 14 mmol/L BUN 9 (7-17) mg/dL Creatinine 0.60 (0.52-1.04) mg/dL Est GFR (CKD-EPI)AfAm >90 (>60 ml/min/1.73 sqM) Est GFR (CKD-EPI)NonAf >90 (>60 ml/min/1.73 sqM) Glucose 130 H (74-99) mg/dL Calcium 9.8 (8.4-10.2) mg/dL Total Bilirubin 0.9 (0.2-1.3) mg/dL AST 49 H (14-36) U/L ALT 55 H (4-34) U/L Alkaline Phosphatase 78 (38-126) U/L Total Protein 7.9 (6.3-8.2) g/dL Albumin 4.7 (3.5-5.0) g/dL Urine Color Light Red Urine Appearance Clear (Clear) Urine pH 5.0 (5.0-8.0) Ur Specific [place] 1.018 (1.001-1.035) Urine Protein Trace H (Negative) Urine Glucose (UA) Negative (Negative) Urine Ketones Negative (Negative) Urine Blood Large H (Negative) Urine Nitrite Negative (Negative) Urine Bilirubin Negative (Negative) Urine Urobilinogen <2.0 (<2.0) mg/dL Ur Leukocyte Esterase Negative (Negative) Urine RBC >182 H (0-5) /hpf Urine WBC 8 H (0-5) /hpf Ur Squamous Epith Cells 2 (0-4) /hpf Amorphous Sediment Rare H (None) /hpf Urine Mucus Occasional H (None) /hpf Urine HCG, Qual Not Detected (Not Detectd) Urine Opiates Screen (NotDetected) Ur Oxycodone Screen (NotDetected) Urine Methadone Screen (NotDetected) Ur Propoxyphene Screen (NotDetected) Ur Barbiturates Screen (NotDetected) U Tricyclic Antidepress (NotDetected) Ur Phencyclidine Scrn (NotDetected) Ur Amphetamines Screen (NotDetected) U Methamphetamines Scrn (NotDetected) U Benzodiazepines Scrn (NotDetected) Urine Cocaine Screen (NotDetected) U Marijuana (THC) Screen (NotDetected) Coronavirus (PCR) (Not Detectd) Disposition <Yonny Echevarria - Last Filed: 01/26/23 19:48> Is patient prescribed a controlled substance at d/c from ED?: No Time of Disposition: 21:39 <David Anderson - Last Filed: 01/26/23 21:34> <Artemio Santos - Last Filed: 01/27/23 14:33> Clinical Impression: Schizoaffective disorder, Acute psychosis Disposition: TRANSFER TO PSYCH HOSP/UNIT Condition: Stable Referrals: None,Stated [Primary Care Provider] - 1-2 days
[2023-01-27 00:22] LABS: ALT 55 U/L (4-34); AST 49 U/L (14-36); African American GFR (CKD) >90 (>60 ml/min/1.73 sqM); Albumin 4.7 g/dL (3.5-5.0); Alkaline Phosphatase 78 U/L (38-126); Anion Gap 14 mmol/L; Basophils % (A) 0 %; Blood Urea Nitrogen 9 mg/dL (7-17); Calcium 9.8 mg/dL (8.4-10.2); Carbon Dioxide 20 mmol/L (22-30); Chloride 104 mmol/L (98-107); Eosinophils % (A) 0 %; Glucose 130 mg/dL (74-99); HCT 45.8 % (34.0-46.0); HGB 15.4 gm/dL (11.4-16.0); Lymphocytes # (A) 2.8 k/uL (1.0-4.8); Lymphocytes % (A) 28 %; MCH 28.8 pg (25.0-35.0); MCHC 33.6 g/dL (31.0-37.0); MCV 85.6 fL (80.0-100.0); Mean Platelet Volume 8.6; Monocytes # (A) 0.5 k/uL (0-1.0); Monocytes % (A) 5 %; Neutrophils # (A) 6.4 k/uL (1.3-7.7); Neutrophils % (A) 65 %; Non-African American GFR(CKD) >90 (>60 ml/min/1.73 sqM); Platelet Count 251 k/uL (150-450); Potassium 3.9 mmol/L (3.5-5.1); RBC 5.35 m/uL (3.80-5.40); RDW 13.6 % (11.5-15.5); Sodium 138 mmol/L (137-145); Total Bilirubin 0.9 mg/dL (0.2-1.3); Total Protein 7.9 g/dL (6.3-8.2); WBC 9.8 k/uL (3.8-10.6)
[2023-01-27 00:37] LABS: Amorphous Sediment,Urine Rare /hpf; Appearance,Urine Clear (Clear); Bilirubin,Urine Negative (Negative); Blood,Urine Large (Negative); Color,Urine Light Red; Glucose,Urine (UA) Negative (Negative); Ketones,Urine Negative (Negative); Leukocyte Esterase,Urine Negative (Negative); Mucus,Urine Occasional /hpf; Nitrite,Urine Negative (Negative); Protein,Urine Trace (Negative); RBC,Urine >182 /hpf (0-5); Specific Gravity,Urine 1.018 (1.001-1.035); Squamous Epithelial Cell,Urine 2 /hpf (0-4); Urobilinogen,Urine <2.0 mg/dL (<2.0); WBC,Urine 8 /hpf (0-5)
[2023-01-27 06:57] VITALS: BP 116/78; PULSE 78; TEMP 97.8
[2023-01-27 13:00] VITALS: RESP 17
== END 2023-01-27 14:42 ==
LOC: EEVIPCON 17:43 → EC 17:43
DX: F25.9 Schizoaffective disorder, unspecified (principal); I10 Essential (primary) hypertension; F41.9 Anxiety disorder, unspecified; F32.A Depression, unspecified; F17.200 Nicotine dependence, unspecified, uncomplicated; Z79.899 Other long term (current) drug therapy; Z20.822 Contact with and (suspected) exposure to COVID-19
CPT/HCPCS: 36415; 80053; 80306; 81001; 81025; 82075; 85025; 87635; 99285